=== PATIENT | female | born 2000 | race African-American/Black ===

== ENCOUNTER 2019-04-21 20:28 | Emergency (ER) | payer OTHER ==
[~2019-04-21] VITALS: Ht 172.7 cm; Wt 86.2 kg
[~2019-04-21 20:28] MED LIST: BACTRIM DS 8001 TA1 PO; BIRTH CONTROL1 EAC1 PO; GOOD NEIGHBOR L10 MG PO; MAPAP325 MG PO; MOTRIN600 MG PO; MOTRIN800 MG PO; MULTIVITAMIN WI1 CTB PO; Motrin,Rufen800 MG PO; NKHM; VIBRAMYCIN100 MG PO; ZANTAC 150150 MG PO; ZITHROMAX Z PA250 MG PO
== END 2019-04-21 21:40 | disposition home or self-care (01) ==
LOC: ED 20:28
DX: Z63.9 Problem related to primary support group, unspecified (principal)

== ENCOUNTER 2019-05-06 08:39 | Emergency (ER) | payer OTHER ==
[~2019-05-06] VITALS: Wt 86.2 kg
[2019-05-06] MEDS ORDERED: NAPROSYN500 MG PO (10:34)
[2019-05-06] MEDS ORDERED: ROBAXIN500 M1 PO (10:34)
[2019-05-06] MEDS ORDERED: MEDROL DOSEPAK4 MG PO (10:34)
== END 2019-05-06 10:37 | disposition home or self-care (01) ==
LOC: ED 08:39
DX: S16.1XXA Strain of muscle, fascia and tendon at neck level, initial encounter (principal); G89.29 Other chronic pain; X58.XXXA Exposure to other specified factors, initial encounter; Y93.89 Activity, other specified; Y92.89 Other specified places as the place of occurrence of the external cause; Y99.8 Other external cause status

== ENCOUNTER 2019-10-24 17:58 | Emergency (ER) | payer OTHER ==
[~2019-10-24] VITALS: Ht 172.7 cm; Wt 108.9 kg
[~2019-10-24 17:58] MED LIST changes: +MEDROL DOSEPAK4 MG PO; +NAPROSYN500 MG PO; +ROBAXIN500 M1 PO
[2019-10-24] MEDS ORDERED: CEFADROXIL500 M1 PO (18:32)
[2019-10-24] MEDS ORDERED: SEPTDS PO (18:32)
[2019-10-24] MEDS ORDERED: NORCO 5-325 TA1 EACH PO (18:33)
== END 2019-10-24 18:40 | disposition home or self-care (01) ==
LOC: ED 17:58
DX: L02.31 Cutaneous abscess of buttock (principal); Z79.899 Other long term (current) drug therapy

== ENCOUNTER 2024-01-07 18:17 | Emergency (ER) | payer OTHER ==
[~2024-01-07] VITALS: Ht 172.7 cm; Wt 92.5 kg
[~2024-01-07 18:17] MED LIST changes: +CEFADROXIL500 M1 PO; +NORCO 5-325 TA1 EACH PO; +SEPTDS PO
[2024-01-07] MEDS ORDERED: HYDROCODONE-AC1 EAC1 PO (18:43)
[2024-01-07] MEDS ORDERED: VIBRAMYCIN100 MG PO (18:43)
[2024-01-07] MEDS ORDERED: Acetaminophen/Hydrocodone 5 MG/325 MG TABLET PO ONE ×2 (18:45→18:55)
[2024-01-07] MEDS ORDERED: Doxycycline Hyclate 100 MG CAP PO ONE ×2 (18:45→18:55)
== END 2024-01-07 19:14 | disposition home or self-care (01) ==
LOC: ED 18:17
DX: L05.01 Pilonidal cyst with abscess (principal); Z98.890 Other specified postprocedural states